=== PATIENT | male | born 1965 | race Caucasian/White ===

== ENCOUNTER 2016-08-26 15:11 | Emergency (ER) | payer BC ==
[~2016-08-26] VITALS: Ht 175.3 cm; Wt 80.1 kg
[2016-08-26] MEDS ORDERED: KETOROLAC 30 MG/1 ML IVPush ONE (16:00)
[2016-08-26] MEDS ORDERED: SODIUM CHLORIDE 0.9% 1,000ML IVBOLUS ONE (16:00)
[2016-08-26] MEDS ORDERED: SODIUM CHLORIDE FLUSH 10ML SYR IVF ONE (16:00)
[2016-08-26 16:09] LABS: ASPARTATE AMINO TRANSFERASE 71 U/L (15-37); BLOOD UREA NITROGEN 12 mg/dL (7-18)
[2016-08-26] MEDS ORDERED: LIDOCAINE 1%, 20ML ONE (16:15)
[2016-08-26 16:50] LABS: GLUCOSE, CSF 54 mg/dL (40-80)
[2016-08-26] MEDS ORDERED: DOXYCYCLINE 100 MG in DEXTROSE 5% 250 ML IV ONE (17:00)
[2016-08-26] MEDS ORDERED: KETOROLAC 30 MG/1 ML ONE (17:23)
[2016-08-26 17:33] VITALS: BP 139/91
== END 2016-08-26 18:44 | disposition home or self-care (01) ==
LOC: ED 17:08
DX: R50.9 Fever, unspecified (principal)
CPT/HCPCS: 36415; 62270; 80053; 82945; 83605; 84145; 84157; 85025; 87040; 87070; 87205; 87252; 87476; 87798; 89051; 96365; 99284; J7030; J7060